=== PATIENT | female | born 1975 | race Caucasian/White ===

== ENCOUNTER 2016-05-20 10:38 | Emergency (ER) | payer OTHER ==
[~2016-05-20] VITALS: Ht 162.6 cm; Wt 59.0 kg
[2016-05-20] MEDS ORDERED: [UNRECOGNIZED DRUG - OTHER] PO (10:43)
[2016-05-20] MEDS ORDERED: KETOROLAC TROMETHAMINE 60 MG/2 ML VIAL IM ONE (11:00)
[2016-05-20] MEDS ORDERED: CYCLOBENZAPRINE HCL 10 MG TABLET PO ONE (11:00)
[2016-05-20] MEDS ORDERED: HYDROCODONE/ACETAMINOPHEN 10-325 MG TABLET PO ONE (11:45)
[2016-05-20 14:05] VITALS: BP 109/77
== END 2016-05-20 14:06 | disposition home or self-care (01) ==
LOC: EMS 10:40
DX: S13.4XXA Sprain of ligaments of cervical spine, initial encounter (principal); M62.838 Other muscle spasm; X58.XXXA Exposure to other specified factors, initial encounter; Y93.89 Activity, other specified; Y92.89 Other specified places as the place of occurrence of the external cause; Y99.8 Other external cause status
CPT/HCPCS: 72125; 96372; 99284; J1885